=== PATIENT | male | born 1960 | race Caucasian/White ===

== ENCOUNTER 2022-09-30 07:32 | Inpatient (IN) ==
[2022-09-30 08:09] LABS: Basophils % 0.2 % (0.0-0.8); Hematocrit 40.3 VOL% (42.0-52.0); Hemoglobin 13.2 GM/DL (14.0-18.0); Immature Granulocytes % 0.4 %; Immature Granulocytes Absolute 0.06 #; Lymphocytes % 7.2 % (21.2-54.2); Mean Corpuscular HGB Conc 32.8 GM/DL (32-36); Mean Corpuscular Volume 94.4 FL (87-102); Mean Platelet Volume 9.8 FL (9.6-12.0); Monocytes # 0.4 10*3/uL (0.11-0.8); Monocytes % 3.2 % (1.7-12.7); Platelet Count 358 T/CUMM (130-400); Red Blood Count 4.27 MC/CUMM (3.8-5.5); Red Cell Distribution Width 13.5 % (9.3-17.3); White Blood Count 13.6 T/CUMM (4-12)
[2022-09-30 08:27] LABS: Albumin 4.5 G/DL (3.4-5.0); Bilirubin,Total 0.5 MG/DL (0.20-1.00); Calcium 10.1 MG/DL (8.5-10.1); Osmolality,Calculated 284.3 MOS/KG (273-304); Potassium 4.4 MMOL/L (3.5-5.1); Total Protein 7.4 G/DL (6.4-8.2)
[2022-09-30] MEDS ORDERED: SODIUM CHLORIDE 0.9% 1,000 ML IV STA (09:20)
[2022-09-30] MEDS ORDERED: ONDANSETRON 4 MG/2 ML VIAL IV STA (09:20)
[2022-09-30] MEDS ORDERED: KETOROLAC 30 MG/1 ML VIAL IV STA (09:20)
[2022-09-30] MEDS ORDERED: MORPHINE 10 MG/1 ML VIAL IV STA (10:17)
[2022-09-30] MEDS ORDERED: MORPHINE 2 MG/1 ML SYRINGE ONE (10:24)
[2022-09-30] MEDS ORDERED: ACETAMINOPHEN 325 MG TABLET PO PRN (11:58)
[2022-09-30] MEDS: LACTATED RINGERS 1,000 ML IV SCH ×2 (12:51→21:34)
[2022-09-30 13:36] LABS: Bilirubin,Urine Negative (Negative); Blood, Urine Negative (Negative); Glucose,Urine (UA) Negative (Negative); Ketones,Urine 80 mg/dL (Negative); Mucus,Urine Occasional /LPF (Occasional); Nitrite,Urine Negative (Negative); Protein,Urine 30 mg/dL (Negative); RBC,Urine 6 /HPF (0-4); Squamous Epithelial Cell,Urine Occasional /HPF (0-10); Urine Appearance CLEAR (Clear); Urine Color Yellow (Yellow); Urine Urobilinogen < 2.0 eU/dL (<2.0)
[2022-09-30 13:51] LABS: Barbiturates Screen,Urine Negative (Negative); Benzodiazepines Screen,Urine Negative (Negative); Cannabinoid Screen,Urine Positive (Negative); Opiate Screen,Urine Positive (Negative); Phencyclidine Screen,Urine Negative (Negative)
[2022-09-30] MEDS: KETOROLAC 30 MG/1 ML VIAL IV PRN (18:41)
[2022-09-30] MEDS: hydrALAZINE 20 MG/1 ML VIAL IV PRN (20:00)
[2022-10-01 05:36] LABS: Calcium 9.1 MG/DL (8.5-10.1); Potassium 3.9 MMOL/L (3.5-5.1)
[2022-10-01] MEDS: LACTATED RINGERS 1,000 ML IV SCH ×4 (06:12→20:17)
[2022-10-01] MEDS: ENOXAPARIN 40 MG/0.4 ML SYRINGE SUBCUT SCH (06:12)
[2022-10-01 06:16] LABS: Basophils % 0.3 % (0.0-0.8); Hematocrit 37.2 VOL% (42.0-52.0); Hemoglobin 12.5 GM/DL (14.0-18.0); Immature Granulocytes % 0.7 %; Lymphocytes # 1.3 10*3/uL (1.4-4.0); Lymphocytes % 8.3 % (21.2-54.2); Mean Corpuscular HGB Conc 33.6 GM/DL (32-36); Mean Corpuscular Volume 92.1 FL (87-102); Mean Platelet Volume 9.6 FL (9.6-12.0); Monocytes # 1.1 10*3/uL (0.11-0.8); Monocytes % 7.3 % (1.7-12.7); Neutrophils % 83.4 % (38.7-73.9); Platelet Count 274 T/CUMM (130-400); Red Blood Count 4.04 MC/CUMM (3.8-5.5); Red Cell Distribution Width 13.6 % (9.3-17.3); White Blood Count 15.1 T/CUMM (4-12)
[2022-10-01] MEDS: ONDANSETRON 4 MG/2 ML VIAL IV PRN (09:00)
[2022-10-01] MEDS: PANTOPRAZOLE 40 MG VIAL IV SCH (09:03)
[2022-10-01] MEDS: FELODIPINE 5 MG TABLET PO SCH (11:55)
[2022-10-01] MEDS ORDERED: TISSUE ADHESIVE 1 EACH APPLICATOR TOP ONE (12:46)
[2022-10-01] MEDS ORDERED: LIDOCAINE 2% 5 ML VIAL ONE (13:07)
[2022-10-01] MEDS ORDERED: propofoL 200 MG/20 ML VIAL IV ONE (13:07)
[2022-10-01] MEDS ORDERED: fentaNYL 100 MCG/2 ML VIAL ONE (13:08)
[2022-10-01] MEDS ORDERED: ONDANSETRON 4 MG/2 ML VIAL ONE ×2 (13:11→15:07)
[2022-10-01] MEDS ORDERED: SEVOFLURANE 1 UNIT/15 MINUTE INH ONE ×4 (13:11)
[2022-10-01] MEDS ORDERED: ROCURONIUM 50 MG/5 ML VIAL IV ONE (13:11)
[2022-10-01] MEDS ORDERED: SUCCINYLCHOLINE 200 MG/10 ML VIAL ONE ×4 (13:11→15:07)
[2022-10-01] MEDS ORDERED: MIDAZOLAM 2 MG/2 ML VIAL ONE (13:44)
[2022-10-01] MEDS ORDERED: SUGAMMADEX 200 MG/2 ML VIAL IV ONE (14:55)
[2022-10-01] MEDS ORDERED: DEXAMETHASONE 4 MG/1 ML VIAL ONE (15:08)
[2022-10-01] MEDS ORDERED: HYDROmorphone 1 MG/1 ML SYRINGE ONE (15:12)
[2022-10-01] MEDS: KETOROLAC 30 MG/1 ML VIAL IV PRN (17:36)
[2022-10-01] MEDS: HYDROmorphone 1 MG/1 ML SYRINGE IV PRN (21:43)
[2022-10-02] MEDS: LACTATED RINGERS 1,000 ML IV SCH ×3 (03:54→21:15)
[2022-10-02] MEDS: ENOXAPARIN 40 MG/0.4 ML SYRINGE SUBCUT SCH (05:54)
[2022-10-02 05:58] LABS: Basophils % 0.2 % (0.0-0.8); Hematocrit 34.8 VOL% (42.0-52.0); Hemoglobin 11.5 GM/DL (14.0-18.0); Immature Granulocytes % 0.6 %; Immature Granulocytes Absolute 0.12 #; Lymphocytes # 1.2 10*3/uL (1.4-4.0); Lymphocytes % 5.9 % (21.2-54.2); Mean Corpuscular Volume 93.8 FL (87-102); Mean Platelet Volume 9.7 FL (9.6-12.0); Monocytes # 1.5 10*3/uL (0.11-0.8); Monocytes % 7.7 % (1.7-12.7); Neutrophils % 85.6 % (38.7-73.9); Platelet Count 256 T/CUMM (130-400); Red Blood Count 3.71 MC/CUMM (3.8-5.5); Red Cell Distribution Width 13.7 % (9.3-17.3); White Blood Count 19.7 T/CUMM (4-12)
[2022-10-02 06:17] LABS: Calcium 8.9 MG/DL (8.5-10.1); Potassium 4.6 MMOL/L (3.5-5.1)
[2022-10-02] MEDS: KETOROLAC 30 MG/1 ML VIAL IV PRN ×3 (10:12→21:16)
[2022-10-02] MEDS: PANTOPRAZOLE 40 MG VIAL IV SCH (10:13)
[2022-10-02] MEDS: FELODIPINE 5 MG TABLET PO SCH (10:52)
[2022-10-03] MEDS: KETOROLAC 30 MG/1 ML VIAL IV PRN ×2 (04:16→13:45)
[2022-10-03] MEDS: LACTATED RINGERS 1,000 ML IV SCH ×3 (04:17→19:45)
[2022-10-03] MEDS: ENOXAPARIN 40 MG/0.4 ML SYRINGE SUBCUT SCH (05:56)
[2022-10-03] MEDS: hydrALAZINE 20 MG/1 ML VIAL IV PRN ×2 (08:42→15:53)
[2022-10-03] MEDS: PANTOPRAZOLE 40 MG VIAL IV SCH (08:42)
[2022-10-03] MEDS: FELODIPINE 5 MG TABLET PO SCH (09:00)
[2022-10-03] MEDS: HYDROmorphone 1 MG/1 ML SYRINGE IV PRN (17:17)
[2022-10-03] MEDS: ONDANSETRON 4 MG/2 ML VIAL IV PRN (17:21)
[2022-10-04] MEDS: LACTATED RINGERS 1,000 ML IV SCH (03:45)
[2022-10-04] MEDS: ENOXAPARIN 40 MG/0.4 ML SYRINGE SUBCUT SCH (05:15)
[2022-10-04] MEDS ORDERED: PHENOL 1.4% THROAT SPRAY 177 ML BOTTLE PO PRN (07:46)
[2022-10-04] MEDS: PANTOPRAZOLE 40 MG VIAL IV SCH (08:16)
[2022-10-04] MEDS: FELODIPINE 5 MG TABLET PO SCH (08:20)
[2022-10-04 09:50] LABS: Basophils % 0.4 % (0.0-0.8); Eosinophils % 0.1 % (0.00-10.9); Hematocrit 32.2 VOL% (42.0-52.0); Hemoglobin 10.5 GM/DL (14.0-18.0); Immature Granulocytes % 0.5 %; Immature Granulocytes Absolute 0.06 #; Lymphocytes # 1.1 10*3/uL (1.4-4.0); Lymphocytes % 10.3 % (21.2-54.2); Mean Corpuscular HGB Conc 32.6 GM/DL (32-36); Mean Corpuscular Volume 94.4 FL (87-102); Mean Platelet Volume 9.4 FL (9.6-12.0); Monocytes # 1.1 10*3/uL (0.11-0.8); Monocytes % 9.8 % (1.7-12.7); Neutrophils % 78.9 % (38.7-73.9); Platelet Count 241 T/CUMM (130-400); Red Blood Count 3.41 MC/CUMM (3.8-5.5); Red Cell Distribution Width 13.6 % (9.3-17.3); White Blood Count 11.1 T/CUMM (4-12)
[2022-10-04 10:13] LABS: Osmolality,Calculated 293.7 MOS/KG (273-304); Potassium 4.2 MMOL/L (3.5-5.1)
[2022-10-04] MEDS: DEXT 5% NACL 0.45% KCL 40 MEQ 40 MEQ/1,000 ML BAG IV SCH ×2 (10:42→18:00)
[2022-10-04] MEDS: KETOROLAC 30 MG/1 ML VIAL IV PRN ×2 (12:55→21:21)
[2022-10-05] MEDS: DEXT 5% NACL 0.45% KCL 40 MEQ 40 MEQ/1,000 ML BAG IV SCH (01:27)
[2022-10-05] MEDS: ENOXAPARIN 40 MG/0.4 ML SYRINGE SUBCUT SCH (06:15)
[2022-10-05 06:32] LABS: Basophils % 0.4 % (0.0-0.8); Eosinophils % 0.4 % (0.00-10.9); Hematocrit 30.2 VOL% (42.0-52.0); Immature Granulocytes % 0.3 %; Immature Granulocytes Absolute 0.03 #; Lymphocytes # 1.2 10*3/uL (1.4-4.0); Mean Corpuscular HGB Conc 33.1 GM/DL (32-36); Mean Corpuscular Volume 93.2 FL (87-102); Monocytes # 1.3 10*3/uL (0.11-0.8); Monocytes % 11.9 % (1.7-12.7); Platelet Count 238 T/CUMM (130-400); Red Blood Count 3.24 MC/CUMM (3.8-5.5); Red Cell Distribution Width 13.4 % (9.3-17.3); White Blood Count 10.7 T/CUMM (4-12)
[2022-10-05 06:45] LABS: Calcium 8.8 MG/DL (8.5-10.1)
[2022-10-05] MEDS: FELODIPINE 5 MG TABLET PO SCH (08:13)
[2022-10-05] MEDS: PANTOPRAZOLE 40 MG VIAL IV SCH (08:14)
[2022-10-05 08:41] VITALS: BP 154/82
== END 2022-10-05 11:56 | disposition home or self-care (01) | DRG 336 ==
LOC: N.ED 07:32 → N.EDINP 07:32 → N.2W 15:07
PROVIDERS: ADMIT Surgery; ATTEND Surgery